=== PATIENT | male | born 1945 | race Caucasian/White ===

== ENCOUNTER → 2019-06-29 | Day surgery (SDC) | payer MEDICARE, BC ==
[~2019-06-29] MED LIST: Acetaminophen IV 1GM/100ML * 100 ML ONE; Buffered Lidocaine 1% SYRIN* 1 ML/SYRINGE INTRADERM ONE; Bupivacaine 0.5%* 50 ML MDV VIAL ONE; Dexamethasone IV* 4 MG/ML 1 ML (4 MG) IV SLOW PU ONE; Dexamethasone IV* 4 MG/ML 1 ML (4 MG) ONE; DiMENhydriNATE IV* 50 MG/ML VIAL IV PUSH PRN; Famotidine IV* 10 MG/ML 2 ML (20 mg) IV ONE; Famotidine IV* 10 MG/ML 2 ML (20 mg) ONE; HYDROmorphone INJ1* 1 MG/ML SYRINGE IV PRN; KETAMINE HCL* 50 MG/ML 10 ML VIAL ONE; Ketorolac INJ* 30 MG/ML 1 ML VIAL ONE; Labetalol IV* 5 MG/ML 20 ML VIAL ONE; Lactated Ringers 1000 ML Bag* 1,000 ML IV SCH; Lidocaine 1% INJ* 10 MG/ML 30 ML SDV ONE; Lidocaine 2% PF * 5 ML VIAL ONE; Midazolam* 1 MG/ML 5 ML VIAL (5 MG) ONE; Naloxone* 0.4 MG/ML 1 ML VIAL IV PRN; Ondansetron INJ* 2 MG/ML VIAL IV ONE; Ondansetron INJ* 2 MG/ML VIAL ONE; PROCHLORPERAZINE INJ 5 MG/ML 2 ML VIAL IV PRN; Propofol* 10 MG/ML 20 ML BTL ONE; ceFAZolin 2 GM PREMIX in ORs 2 GM/50 ML BAG ONE; fentaNYL* 50 MCG/ML 2 ML VIAL (100 MCG VIAL) IV PRN; fentaNYL* 50 MCG/ML 2 ML VIAL (100 MCG VIAL) ONE; oxyCODONE TAB* 5 MG TAB PO PRN; oxyCODONE/Acetamin 5/325 MG* TAB PO PRN
--- NOTE | 2019-06-29 16:18 | BRIEFOPN ---
Brief Operative/Procedure Note - Operation Details Pre-Op Diagnosis: Incarcerated umbilical hernia Post-Op Diagnosis: same Procedures: open reduction/repair of incarcerated umbilical hernia Surgeon(s)/Proceduralists: Briana Anesthesia: Local/MAC; [place] Estimated Blood Loss: <10mL Findings: Incarcerated tissue reduced during surgery Specimen(s)/Culture(s) Description: Hernia sac Complications: None
[2019-06-29 16:55] VITALS: BP 110/64
--- NOTE | 2019-06-29 21:58 | OP ---
CC: Polo Weiss MD * DATE OF OPERATION: 06/29/19 - [facility] DATE OF : 43 SURGEON: Dr. Warren. SENIOR EXAMINER: None. ANESTHESIOLOGIST: Dr. Ely. ANESTHESIA: Local MAC. PRE-OP DIAGNOSIS: Incarcerated umbilical hernia. POST-OP DIAGNOSIS: Incarcerated umbilical hernia. OPERATIVE PROCEDURE: Open reduction and repair of umbilical hernia. ESTIMATED BLOOD LOSS: Minimal. IV FLUIDS: Crystalloids. SPECIMENS: Hernia sac. DRAINS: None. COMPLICATIONS: None. COUNTS: The instrument, needle, and sponge counts were correct. DESCRIPTION OF PROCEDURE: The patient was brought to the operating room and placed on the table supine. Sequential compression devices were placed in both lower extremities. Intravenous sedation was administered. He was positioned and padded appropriately. He was prepped and draped in the usual sterile fashion, and a time-out was performed. Local anesthetic was infiltrated into the skin and soft tissue in the periumbilical region and then a curvilinear infraumbilical incision was created and subcutaneous tissues were divided with cautery. During manipulation of the tissues, the hernia reduced. The sac was then dissected free from the subcutaneous tissues and the umbilical stalk was freed from the anterior abdominal wall. The hernia sac was excised and submitted to Pathology. Inspection through the hernia defect which was 2 cm revealed only viable appearing omentum. The edges of the hernia defect were freshened with sharp and blunt dissection. The hernia defect was closed with #1 Ethibond suture using 2 [id number] stitches to complete the closure. Umbilical stalk was reapproximated with 3-0 Vicryl to the anterior abdominal wall. The incision was closed in 2 layers with 3-0 Vicryl for the subcutaneous tissues and 4-0 Monocryl for the skin edges. Steri-Strips and dressings were applied. The patient tolerated the procedure well and was awakened and transferred to recovery in stable condition. [id number]/[facility] #: [id number] [facility] SYSTEM[facility]
== END | disposition home or self-care (01) ==
LOC: OR 12:32
PROVIDERS: ATTEND Surgery
DX: K42.0 Umbilical hernia with obstruction, without gangrene (principal); I10 Essential (primary) hypertension; E78.00 Pure hypercholesterolemia, unspecified; M19.90 Unspecified osteoarthritis, unspecified site; M10.9 Gout, unspecified; Z87.891 Personal history of nicotine dependence
CPT/HCPCS: 88302; J0690; J1100; J1885; J2250; J2405; J2704; J3010; J3490

== ENCOUNTER 2023-08-17 09:00 | Observation (INO) ==
[2023-08-26] MEDS ORDERED: Metoclopramide 5 MG/ML VIAL (10 mg) IV PRN (10:55)
[2023-08-26] MEDS ORDERED: HYDROcodone/ACETAMIN 5/325 mg TAB PO PRN (10:55)
[2023-08-26] MEDS ORDERED: Ondansetron 4 mg VIAL 2 MG/ML 2 ml VIAL IV PRN (10:55)
[2023-08-26] MEDS ORDERED: Buffered Lidocaine 1% SYRIN 1 ml INTRADERM ONE (10:55)
[2023-08-26] MEDS ORDERED: Naloxone 0.4 mg VIAL 0.4 mg/ml 1 ml VIAL IV PRN (10:55)
[2023-08-26] MEDS ORDERED: Lactated Ringers 1000 ml BAG 1,000 ML IV SCH (11:00)
[2023-08-27] MEDS ORDERED: Midazolam 2 mg/2 ml VIAL 1 mg/ml 2 ml VIAL (2 mg) ONE (07:47)
[2023-08-27] MEDS ORDERED: Rocuronium 50 mg VIAL 10 mg/ml 5 ml VIAL (50 mg) ONE (07:47)
[2023-08-27] MEDS ORDERED: Dexamethasone IV 4 MG/ML VIAL 1 ml VIAL ONE ×2 (07:47→11:02)
[2023-08-27] MEDS ORDERED: Phenylephrine IV 10 MG/ML 1 ml VIAL ONE (07:47)
[2023-08-27] MEDS ORDERED: Lidocaine 2% PF 5 ML VIAL ONE (07:47)
[2023-08-27] MEDS ORDERED: fentaNYL 100 mcg/2 ml 50 MCG/ML VIAL ONE ×3 (07:47→14:42)
[2023-08-27] MEDS ORDERED: Sterile Water for Inj 10 ML ONE (07:47)
[2023-08-27] MEDS ORDERED: Ondansetron 4 mg VIAL 2 MG/ML 2 ml VIAL ONE (07:47)
[2023-08-27] MEDS ORDERED: Tranexamic Acid 1 GM/100ML BAG 2,000 MG/200 ML BAG IV ONE (09:47)
[2023-08-27] MEDS ORDERED: ceFAZolin 2 GM in NS PREMIX 2 GM/100 ML BAG IVPB ONE (09:47)
[2023-08-27 10:11] LABS: Rapid COVID-19 Molecular Undetected (Undetected)
[2023-08-27] MEDS ORDERED: ROPIVACAINE 5 MG/ML 30 ML BTL (0.5%) ONE ×2 (11:02→11:07)
[2023-08-27] MEDS ORDERED: HYDROmorphone 0.5 MG/0.5 ML SYRINGE ONE (12:26)
[2023-08-27] MEDS ORDERED: Lactulose 30 ml UDC PO PRN (12:56)
[2023-08-27] MEDS ORDERED: Magnesium Hydroxide LIQ 30 ML UDC PO PRN (12:56)
[2023-08-27] MEDS ORDERED: Ondansetron ODT 4 mg TAB 4 MG TAB PO PRN (12:56)
[2023-08-27] MEDS ORDERED: Ondansetron 4 mg VIAL 2 MG/ML 2 ml VIAL IV PRN (12:56)
[2023-08-27] MEDS ORDERED: Morphine 2 MG/ML SYRINGE IV PRN (12:56)
[2023-08-27] MEDS ORDERED: Calcium Carb (TUMS) 500 mg CHEW TAB PO PRN ×2 (14:32→16:42)
[2023-08-27] MEDS: fentaNYL 100 mcg/2 ml 50 MCG/ML VIAL IV PRN ×4 (14:43→15:18)
[2023-08-27] MEDS: Lactated Ringers 1000 ml BAG 1,000 ML IV SCH (16:49)
[2023-08-27] MEDS: Nicotine PATCH 14 MG/24 HR PATCH TRANSDERM SCH (19:17)
[2023-08-27] MEDS: Magnesium Hydroxide LIQ 30 ML UDC PO SCH (20:26)
[2023-08-27] MEDS: ceFAZolin 1 GM ADVAN 1 GM in NS 0.9% 50 ML 50 ML IVPB SCH (20:28)
[2023-08-28] MEDS: Lactated Ringers 1000 ml BAG 1,000 ML IV SCH (03:22)
[2023-08-28] MEDS: ceFAZolin 1 GM ADVAN 1 GM in NS 0.9% 50 ML 50 ML IVPB SCH ×2 (03:23→11:56)
[2023-08-28 07:17] LABS: Platelet Count 166 10^3/uL (150-450)
[2023-08-28 07:28] LABS: Hematocrit 40.3 % (38-53); Hemoglobin 13.7 g/dL (13.2-16.3); Mean Platelet Volume 6.9 fL (7.5-11.2)
[2023-08-28 07:37] LABS: Calcium 8.8 mg/dL (8.6-10.3); Creatinine, Serum 0.9 mg/dL (0.67-1.17); Potassium 4.4 mmol/L (3.5-5.0); eGFR CKD-EPI 86.9 (>60)
[2023-08-28] MEDS: Nicotine PATCH 14 MG/24 HR PATCH TRANSDERM SCH (08:32)
[2023-08-28] MEDS: Magnesium Hydroxide LIQ 30 ML UDC PO SCH (08:34)
[2023-08-28] MEDS ORDERED: Vitamin THERAPEUTIC TAB PO SCH (09:00)
[2023-08-28 10:52] VITALS: BP 108/70
== END 2023-08-28 14:50 | disposition home or self-care (01) ==
LOC: AA 08-27 09:11 → INTOOBSV 08-27 09:11 → SSU 08-27 12:56
PROVIDERS: ADMIT Orthopaedic Surgery Adult Reconstructive Orthopaedic Surgery; ATTEND Orthopaedic Surgery Adult Reconstructive Orthopaedic Surgery